=== PATIENT | male | born 1940 | race Two or more races ===

== ENCOUNTER → 2017-04-16 | Emergency (ER) | payer OTHER ==
[~2017-04-16] VITALS: Ht 177.8 cm; Wt 74.4 kg
[~2017-04-16] MED LIST: ARTIFICIAL TEAR15 M8 OP; ASA81 MG; AVAPRO75 MG; CATAFLAM50 MG PO; CRESTOR5 MG; MEDROL DOSE PACK; NEURONTIN300 MG PO; SKELAXIN800 MG PO
== END | disposition home or self-care (01) ==
LOC: ER 07:43
DX: R07.89 Other chest pain (principal)

== ENCOUNTER 2017-04-18 08:51 | Outpatient (CLI) | payer OTHER | END 2017-04-18 09:30 | disposition home or self-care (01) | LOC: NUCLEAR 08:51 | DX: I20.0 Unstable angina (principal) | CPT/HCPCS: 78452; 93017; A9500 ==

== ENCOUNTER 2018-02-16 09:38 | Outpatient (CLI) | payer OTHER | END 2018-02-16 09:54 | disposition home or self-care (01) | LOC: SONOGRAMA 09:38 | DX: K76.0 Fatty (change of) liver, not elsewhere classified (principal) ==

== ENCOUNTER 2018-03-04 11:39 | Outpatient (CLI) | payer OTHER | END 2018-03-04 15:36 | disposition home or self-care (01) | LOC: RAD 11:39 | DX: J44.9 Chronic obstructive pulmonary disease, unspecified (principal) ==

== ENCOUNTER 2018-10-04 14:16 | Outpatient (CLI) | payer OTHER | END 2018-10-04 14:17 | disposition home or self-care (01) | LOC: NUCLEAR 14:16 | DX: M81.0 Age-related osteoporosis without current pathological fracture (principal) ==

== ENCOUNTER → 2018-11-29 10:34 | Outpatient (CLI) | payer OTHER | END | disposition home or self-care (01) | LOC: LAB 10:34 | DX: D53.8 Other specified nutritional anemias (principal); D53.1 Other megaloblastic anemias, not elsewhere classified; E72.12 Methylenetetrahydrofolate reductase deficiency ==

== ENCOUNTER 2019-01-20 09:13 | Outpatient (CLI) | payer OTHER | END 2019-01-20 09:21 | disposition home or self-care (01) | LOC: LAB 09:13 | DX: R35.0 Frequency of micturition (principal); F52.21 Male erectile disorder; C61 Malignant neoplasm of prostate; D64.89 Other specified anemias; R10.84 Generalized abdominal pain; E03.8 Other specified hypothyroidism; E78.49 Other hyperlipidemia; R73.09 Other abnormal glucose; I10 Essential (primary) hypertension; Z13.6 Encounter for screening for cardiovascular disorders ==

== ENCOUNTER → 2019-10-20 09:31 | Outpatient (CLI) | payer OTHER | END | disposition home or self-care (01) | LOC: LAB 09:31 | PROVIDERS: ATTEND Internal Medicine Sports Medicine | DX: D64.89 Other specified anemias (principal); E11.9 Type 2 diabetes mellitus without complications; I10 Essential (primary) hypertension; E03.8 Other specified hypothyroidism; C61 Malignant neoplasm of prostate ==

== ENCOUNTER 2019-11-26 07:51 | Outpatient (CLI) | payer OTHER | END 2019-11-26 07:54 | disposition home or self-care (01) | LOC: RAD 07:51 | PROVIDERS: ATTEND Internal Medicine Sports Medicine | DX: R10.13 Epigastric pain (principal) ==

== ENCOUNTER 2019-12-17 07:22 | Outpatient (CLI) | payer OTHER | END 2019-12-17 07:36 | disposition home or self-care (01) | LOC: NUCLEAR 07:22 | PROVIDERS: ATTEND Internal Medicine Cardiovascular Disease | DX: R06.00 Dyspnea, unspecified (principal); I11.9 Hypertensive heart disease without heart failure | CPT/HCPCS: 78452; 93017; A9500 ==

== ENCOUNTER 2020-04-16 09:28 | Outpatient (CLI) | payer OTHER | END 2020-04-16 09:34 | disposition home or self-care (01) | LOC: LAB 09:28 | PROVIDERS: ATTEND Urology | DX: F52.21 Male erectile disorder (principal); R35.0 Frequency of micturition; C61 Malignant neoplasm of prostate; N30.00 Acute cystitis without hematuria; R97.20 Elevated prostate specific antigen [PSA] ==

== ENCOUNTER 2020-04-21 09:18 | Outpatient (CLI) | payer OTHER | END 2020-04-21 09:23 | disposition home or self-care (01) | LOC: LAB 09:18 | PROVIDERS: ATTEND Internal Medicine Sports Medicine | DX: D64.89 Other specified anemias (principal); E11.9 Type 2 diabetes mellitus without complications; E78.2 Mixed hyperlipidemia; I10 Essential (primary) hypertension; E03.8 Other specified hypothyroidism ==

== ENCOUNTER → 2020-06-29 11:22 | Outpatient (CLI) | payer OTHER | END | disposition home or self-care (01) | LOC: LAB 11:22 | PROVIDERS: ATTEND Internal Medicine Cardiovascular Disease | DX: E78.2 Mixed hyperlipidemia (principal); D64.89 Other specified anemias; N39.8 Other specified disorders of urinary system; R10.84 Generalized abdominal pain; E03.8 Other specified hypothyroidism; E78.89 Other lipoprotein metabolism disorders; E55.9 Vitamin D deficiency, unspecified; E11.9 Type 2 diabetes mellitus without complications; R73.09 Other abnormal glucose; N40.3 Nodular prostate with lower urinary tract symptoms; I10 Essential (primary) hypertension; Z13.6 Encounter for screening for cardiovascular disorders ==

== ENCOUNTER → 2020-09-28 09:03 | Outpatient (CLI) | payer OTHER | END | disposition home or self-care (01) | LOC: LAB 09:03 | PROVIDERS: ATTEND Internal Medicine Sports Medicine | DX: D64.89 Other specified anemias (principal); E11.9 Type 2 diabetes mellitus without complications; E78.49 Other hyperlipidemia; K76.89 Other specified diseases of liver; E03.8 Other specified hypothyroidism; E55.9 Vitamin D deficiency, unspecified; R29.898 Other symptoms and signs involving the musculoskeletal system ==

== ENCOUNTER → 2020-12-31 09:55 | Outpatient (CLI) | payer OTHER | END | disposition home or self-care (01) | LOC: LAB 09:55 | PROVIDERS: ATTEND Internal Medicine Cardiovascular Disease | DX: D64.89 Other specified anemias (principal); N39.0 Urinary tract infection, site not specified; R10.84 Generalized abdominal pain; E03.8 Other specified hypothyroidism; E78.49 Other hyperlipidemia; E55.9 Vitamin D deficiency, unspecified; R73.09 Other abnormal glucose; R06.09 Other forms of dyspnea; I10 Essential (primary) hypertension ==

== ENCOUNTER 2021-01-10 10:22 | Outpatient (CLI) | payer OTHER | END 2021-01-10 10:31 | disposition home or self-care (01) | LOC: RX STUDY 10:22 | PROVIDERS: ATTEND Specialist | DX: K22.89 Other specified disease of esophagus (principal); K21.9 Gastro-esophageal reflux disease without esophagitis ==

== ENCOUNTER 2021-02-14 15:39 | Outpatient (CLI) | payer OTHER ==
[2021-02-16] MEDS ORDERED: MELOXICAM15 MG PO (15:14)
== END 2021-02-14 15:48 | disposition home or self-care (01) ==
LOC: RAD 15:39
PROVIDERS: ATTEND Chiropractor
DX: M25.562 Pain in left knee (principal)

== ENCOUNTER 2021-02-15 11:42 | Outpatient (CLI) | payer OTHER ==
[2021-02-16] MEDS ORDERED: MELOXICAM15 MG PO (15:14)
== END 2021-02-15 11:50 | disposition home or self-care (01) ==
LOC: MRI 11:42
PROVIDERS: ATTEND Chiropractor
DX: M25.562 Pain in left knee (principal)
CPT/HCPCS: 73721

== ENCOUNTER 2021-04-14 09:36 | Outpatient (CLI) | payer OTHER ==
[~2021-04-14 09:36] MED LIST changes: +MELOXICAM15 MG PO
== END 2021-04-14 09:42 | disposition home or self-care (01) ==
LOC: LAB 09:36
PROVIDERS: ATTEND Internal Medicine Sports Medicine
DX: R97.0 Elevated carcinoembryonic antigen [CEA] (principal)

== ENCOUNTER 2021-06-06 09:17 | Outpatient (CLI) | payer OTHER | END 2021-06-06 09:18 | disposition home or self-care (01) | LOC: LAB 09:17 | PROVIDERS: ATTEND Internal Medicine Cardiovascular Disease | DX: D64.9 Anemia, unspecified (principal); R10.9 Unspecified abdominal pain; E78.5 Hyperlipidemia, unspecified; E55.9 Vitamin D deficiency, unspecified; N40.0 Benign prostatic hyperplasia without lower urinary tract symptoms; Z12.5 Encounter for screening for malignant neoplasm of prostate; I10 Essential (primary) hypertension; Z13.6 Encounter for screening for cardiovascular disorders ==

== ENCOUNTER 2021-07-28 10:32 | Outpatient (CLI) | payer OTHER | END 2021-07-28 10:35 | disposition home or self-care (01) | LOC: LAB 10:32 | PROVIDERS: ATTEND Internal Medicine Sports Medicine | DX: R05.9 Cough, unspecified (principal); R06.02 Shortness of breath; R50.9 Fever, unspecified; J20.8 Acute bronchitis due to other specified organisms; J20.2 Acute bronchitis due to streptococcus; J98.8 Other specified respiratory disorders; J12.89 Other viral pneumonia; Z20.822 Contact with and (suspected) exposure to COVID-19; Z20.828 Contact with and (suspected) exposure to other viral communicable diseases ==

== ENCOUNTER 2021-08-23 10:04 | Outpatient (CLI) | payer OTHER ==
[2021-08-24] MEDS ORDERED: DICLOFENAC SODI75 MG PO (12:32)
[2021-08-24] MEDS ORDERED: SKELAXIN800 MG PO (12:32)
== END 2021-08-23 10:12 | disposition home or self-care (01) ==
LOC: RAD 10:04
PROVIDERS: ATTEND Chiropractor
DX: M99.03 Segmental and somatic dysfunction of lumbar region (principal)

== ENCOUNTER → 2021-10-05 09:51 | Outpatient (CLI) | payer OTHER ==
[~2021-10-05 09:51] MED LIST changes: +CELEBREX200MG PO; +DICLOFENAC SODI75 MG PO
== END | disposition home or self-care (01) ==
LOC: LAB 09:51
PROVIDERS: ATTEND Internal Medicine Sports Medicine
DX: D64.9 Anemia, unspecified (principal); E11.9 Type 2 diabetes mellitus without complications; E78.2 Mixed hyperlipidemia; I10 Essential (primary) hypertension; E03.8 Other specified hypothyroidism

== ENCOUNTER 2021-10-06 10:57 | Outpatient (CLI) | payer OTHER | END 2021-10-06 10:58 | disposition home or self-care (01) | LOC: MRI 10:57 | PROVIDERS: ATTEND Physical Medicine & Rehabilitation | DX: M54.51 Vertebrogenic low back pain (principal); M51.37 Other intervertebral disc degeneration, lumbosacral region | CPT/HCPCS: 72158; Q9965; 72148 ==

== ENCOUNTER 2021-11-10 09:49 | Outpatient (CLI) | payer OTHER | END 2021-11-10 09:50 | disposition home or self-care (01) | LOC: LAB 09:49 | PROVIDERS: ATTEND Internal Medicine Cardiovascular Disease | DX: D64.9 Anemia, unspecified (principal); R10.9 Unspecified abdominal pain; E03.9 Hypothyroidism, unspecified; E78.5 Hyperlipidemia, unspecified; E88.9 Metabolic disorder, unspecified ==

== ENCOUNTER → 2021-11-21 | Outpatient (CLI) | payer OTHER | END | disposition home or self-care (01) | LOC: TOM 10:30 | DX: J84.9 Interstitial pulmonary disease, unspecified (principal) ==

== ENCOUNTER 2022-01-03 09:05 | Outpatient (CLI) | payer OTHER | END 2022-01-03 09:17 | disposition home or self-care (01) | LOC: LAB 09:05 | PROVIDERS: ATTEND Urology | DX: C61 Malignant neoplasm of prostate (principal); N30.10 Interstitial cystitis (chronic) without hematuria ==

== ENCOUNTER 2022-02-02 13:35 | Outpatient (CLI) | payer OTHER ==
[~2022-02-02 13:35] MED LIST changes: +ORPHENADRINE C100 MG PO
== END 2022-02-02 13:37 | disposition home or self-care (01) ==
LOC: NUCLEAR 13:35
PROVIDERS: ATTEND Physical Medicine & Rehabilitation
DX: M81.0 Age-related osteoporosis without current pathological fracture (principal)

== ENCOUNTER 2022-02-21 14:11 | Outpatient (CLI) | payer OTHER | END 2022-02-21 14:18 | disposition home or self-care (01) | LOC: RAD 14:11 | PROVIDERS: ATTEND Physical Medicine & Rehabilitation | DX: M25.511 Pain in right shoulder (principal); M25.512 Pain in left shoulder ==

== ENCOUNTER 2022-02-24 08:32 | Outpatient (CLI) | payer OTHER | END 2022-02-24 08:41 | disposition home or self-care (01) | LOC: SONOGRAMA 08:32 | PROVIDERS: ATTEND Physical Medicine & Rehabilitation | DX: M25.511 Pain in right shoulder (principal); M25.512 Pain in left shoulder ==

== ENCOUNTER 2022-04-05 09:14 | Outpatient (CLI) | payer OTHER | END 2022-04-05 09:16 | disposition home or self-care (01) | LOC: LAB 09:14 | DX: D64.9 Anemia, unspecified (principal); R10.9 Unspecified abdominal pain; E78.5 Hyperlipidemia, unspecified; E11.9 Type 2 diabetes mellitus without complications; E55.9 Vitamin D deficiency, unspecified; R97.20 Elevated prostate specific antigen [PSA] ==

== ENCOUNTER 2022-10-02 09:49 | Outpatient (CLI) | payer OTHER | END 2022-10-02 09:51 | disposition home or self-care (01) | LOC: LAB 09:49 | PROVIDERS: ATTEND Internal Medicine Sports Medicine | DX: D64.9 Anemia, unspecified (principal); E11.9 Type 2 diabetes mellitus without complications; E78.2 Mixed hyperlipidemia; I10 Essential (primary) hypertension; E03.8 Other specified hypothyroidism; R10.9 Unspecified abdominal pain; E78.5 Hyperlipidemia, unspecified; R97.20 Elevated prostate specific antigen [PSA]; R31.1 Benign essential microscopic hematuria; C61 Malignant neoplasm of prostate ==

== ENCOUNTER 2023-01-09 10:02 | Outpatient (CLI) | payer OTHER ==
[2023-01-09 10:36] LABS: HEMATOCRIT 37.5 % (39.0-48.0); HEMOGLOBIN 12.7 g/dL (13-16.00); MEAN CELL VOLUME 96.9 fL (80.0-100.00); MEAN CORPUSCULAR HEMOGLOBIN 32.9 pg (27.00-32.0); PLATELET COUNT 244 K/uL (150-450); RED BLOOD COUNT 3.87 M/uL (4.00-6.00); RED CELL DISTRIBUTION WIDTH 13.2 % (11.5-14.5)
[2023-01-09 10:46] LABS: INR 0.96; PARTIAL THROMBOPLASTIN TIME 27.1 SECONDS (22.0-34.0); PROTHROMBIN TIME 10.1 SECONDS (9.0-11.5)
[2023-01-09 11:14] LABS: ALBUMIN 3.8 gm/dL (3.4-5.0); BILIRUBIN TOTAL 0.43 mg/dL (0.3-1.2); CALCIUM 8.9 mg/dL (8.5-10.1); CHOL HDL RATIO 2.3 (0-5.0); CREATININE SERUM 0.88 mg/dL (0.70-1.30); GFR 82.7; GLOBULINA 2.9 G/DL (2.4-3.5); POTASSIUM 4.42 mEq/L (3.5-5.1); TOTAL PROTEIN 6.7 gm/dL (6.4-8.2)
== END 2023-01-09 13:19 | disposition home or self-care (01) ==
LOC: LAB 10:02
PROVIDERS: ATTEND Internal Medicine Cardiovascular Disease
DX: R10.9 Unspecified abdominal pain (principal); E78.5 Hyperlipidemia, unspecified; Z79.01 Long term (current) use of anticoagulants

== ENCOUNTER 2023-01-10 09:24 | Outpatient (CLI) | payer OTHER ==
[2023-01-10 11:14] LABS: FERRITIN 78.9 NG/ML (26-388); POTASSIUM 4.44 mEq/L (3.5-5.1)
[2023-01-10 11:15] LABS: ERYTHROCYTE SEDIMENTATION RATE 13 mm/hr
[2023-01-10 11:28] LABS: CORTISOL 13.29 ug/dl
[2023-01-10 14:40] LABS: PLATELET ESTIMATE NORMAL (NORMAL)
== END 2023-01-10 13:04 | disposition home or self-care (01) ==
LOC: LAB 09:24
PROVIDERS: ATTEND Internal Medicine Hematology & Oncology
DX: D51.3 Other dietary vitamin B12 deficiency anemia (principal); D52.0 Dietary folate deficiency anemia; E27.40 Unspecified adrenocortical insufficiency

== ENCOUNTER 2023-04-10 07:42 | Outpatient (CLI) | payer OTHER ==
[~2023-04-10 07:42] MED LIST changes: +DICLOFENAC SOD100 GM TOP
[2023-04-10 08:27] LABS: PH,URINE 5.5 (5.0-8.0); URINE APPEARANCE Clear; URINE BILIRRUBIN Negative (NEGATIVE); URINE BLOOD Negative; URINE COLOR Yellow; URINE GLUCOSE Negative (NEGATIVE); URINE LEUKOCYTE Negative; URINE NITRATE Negative; URINE PROTEIN Negative (NEGATIVE); URINE UROBILINOGEN 0.2 E.U./dl
[2023-04-10 08:31] LABS: URINE BACTERIA 13.8 uL (0.0-1933); URINE EPITHELIAL CELLS 4.1 uL (0.0-38.8); URINE RBC 14.8 uL (0.0-20.8); URINE WBC 3.7 uL (0.0-23.2)
[2023-04-10 08:42] LABS: HEMATOCRIT 36.9 % (39.0-48.0); HEMOGLOBIN 12.7 g/dL (13-16.00); MEAN CELL VOLUME 97.4 fL (80.0-100.00); MEAN CORPUSCULAR HEMOGLOBIN 33.5 pg (27.00-32.0); MEAN CORPUSCULAR HGB CONC 34.4 g/dl (32.0-36.0); PLATELET COUNT 268 K/uL (150-450); RED BLOOD COUNT 3.79 M/uL (4.00-6.00); RED CELL DISTRIBUTION WIDTH 14.1 % (11.5-14.5)
[2023-04-10 09:30] LABS: ALBUMIN 3.8 gm/dL (3.4-5.0); BILIRUBIN TOTAL 0.52 mg/dL (0.3-1.2); CALCIUM 9.1 mg/dL (8.5-10.1); CHOL HDL RATIO 2.3 (0-5.0); CREATININE SERUM 0.78 mg/dL (0.70-1.30); GFR 95.06; GLOBULINA 2.7 G/DL (2.4-3.5); POTASSIUM 4.29 mEq/L (3.5-5.1); T4 FREE 1.09 NG/ML (0.76-1.46); TOTAL PROTEIN 6.5 gm/dL (6.4-8.2); TSH 1.92 uIU/mL (0.358-3.74)
== END 2023-04-10 07:43 | disposition home or self-care (01) ==
LOC: LAB 07:42
PROVIDERS: ATTEND Internal Medicine Sports Medicine
DX: D64.9 Anemia, unspecified (principal); E11.9 Type 2 diabetes mellitus without complications; E78.2 Mixed hyperlipidemia; I10 Essential (primary) hypertension; E03.8 Other specified hypothyroidism

== ENCOUNTER 2023-06-12 09:24 | Outpatient (CLI) | payer OTHER ==
[2023-06-12 10:31] LABS: HEMATOCRIT 37.3 % (39.0-48.0); HEMOGLOBIN 12.9 g/dL (13-16.00); MEAN CELL VOLUME 98.1 fL (80.0-100.00); MEAN CORPUSCULAR HEMOGLOBIN 33.8 pg (27.00-32.0); MEAN CORPUSCULAR HGB CONC 34.5 g/dl (32.0-36.0); PLATELET COUNT 261 K/uL (150-450); RED CELL DISTRIBUTION WIDTH 13.2 % (11.5-14.5)
[2023-06-12 11:10] LABS: ALBUMIN 3.8 gm/dL (3.4-5.0); BILIRUBIN TOTAL 0.45 mg/dL (0.3-1.2); CALCIUM 9.4 mg/dL (8.5-10.1); CHOL HDL RATIO 2.2 (0-5.0); CREATININE SERUM 0.84 mg/dL (0.70-1.30); GFR 87.27; POTASSIUM 4.51 mEq/L (3.5-5.1); TOTAL PROTEIN 6.8 gm/dL (6.4-8.2)
== END 2023-06-12 09:26 | disposition home or self-care (01) ==
LOC: LAB 09:24
PROVIDERS: ATTEND Internal Medicine Cardiovascular Disease
DX: D64.9 Anemia, unspecified (principal); R10.9 Unspecified abdominal pain; E78.5 Hyperlipidemia, unspecified; E11.9 Type 2 diabetes mellitus without complications

== ENCOUNTER → 2023-10-18 09:07 | Outpatient (CLI) | payer OTHER ==
[2023-10-18 09:57] LABS: PH,URINE 5.5 (5.0-8.0); URINE APPEARANCE Clear; URINE BILIRRUBIN Negative (NEGATIVE); URINE BLOOD Negative; URINE COLOR Yellow; URINE GLUCOSE Negative (NEGATIVE); URINE LEUKOCYTE Negative; URINE NITRATE Negative; URINE PROTEIN Negative (NEGATIVE)
[2023-10-18 10:02] LABS: URINE BACTERIA 32.7 uL (0.0-1933); URINE EPITHELIAL CELLS 1.8 uL (0.0-38.8); URINE RBC 11.1 uL (0.0-20.8); URINE WBC 3.2 uL (0.0-23.2)
[2023-10-18 10:21] LABS: HEMATOCRIT 36.2 % (39.0-48.0); HEMOGLOBIN 12.4 g/dL (13-16.00); MEAN CELL VOLUME 99.5 fL (80.0-100.00); MEAN CORPUSCULAR HEMOGLOBIN 34.1 pg (27.00-32.0); MEAN CORPUSCULAR HGB CONC 34.2 g/dl (32.0-36.0); PLATELET COUNT 268 K/uL (150-450); RED BLOOD COUNT 3.64 M/uL (4.00-6.00); RED CELL DISTRIBUTION WIDTH 13.3 % (11.5-14.5)
[2023-10-18 11:06] LABS: ALBUMIN 3.9 gm/dL (3.4-5.0); BILIRUBIN TOTAL 0.45 mg/dL (0.3-1.2); CALCIUM 9.1 mg/dL (8.5-10.1); CHOL HDL RATIO 2.1 (0-5.0); CREATININE SERUM 0.86 mg/dL (0.70-1.30); GFR 84.93; POTASSIUM 4.65 mEq/L (3.5-5.1); T4 FREE 1.02 NG/ML (0.76-1.46); TOTAL PROTEIN 6.9 gm/dL (6.4-8.2); TSH 1.72 uIU/mL (0.358-3.74)
== END | disposition home or self-care (01) ==
LOC: LAB 09:07
PROVIDERS: ATTEND Internal Medicine Cardiovascular Disease
DX: D64.9 Anemia, unspecified (principal); N39.0 Urinary tract infection, site not specified; R10.9 Unspecified abdominal pain; E78.5 Hyperlipidemia, unspecified; E11.9 Type 2 diabetes mellitus without complications; E78.2 Mixed hyperlipidemia; I10 Essential (primary) hypertension; E03.8 Other specified hypothyroidism

== ENCOUNTER 2024-02-04 09:09 | Outpatient (CLI) | payer OTHER ==
[2024-02-04 09:53] LABS: URINE APPEARANCE Clear; URINE BILIRRUBIN Negative (NEGATIVE); URINE BLOOD Negative; URINE COLOR Yellow; URINE GLUCOSE Negative (NEGATIVE); URINE KETONE Negative (NEGATIVE); URINE LEUKOCYTE Negative; URINE NITRATE Negative; URINE PROTEIN Negative (NEGATIVE); URINE UROBILINOGEN 0.2 E.U./dl
[2024-02-04 09:58] LABS: URINE CAST 0.15 uL (0.0-1.40); URINE EPITHELIAL CELLS 0.3 uL (0.0-38.8); URINE RBC 6.7 uL (0.0-20.8); URINE WBC 1.6 uL (0.0-23.2)
== END 2024-02-04 23:00 | disposition home or self-care (01) ==
LOC: LAB 09:09
PROVIDERS: ATTEND Urology
DX: R35.0 Frequency of micturition (principal); F52.21 Male erectile disorder; C61 Malignant neoplasm of prostate; R31.1 Benign essential microscopic hematuria

== ENCOUNTER 2024-02-04 10:12 | Outpatient (CLI) | payer OTHER | END 2024-02-04 10:23 | disposition home or self-care (01) | LOC: SONOGRAMA 10:12 | PROVIDERS: ATTEND Urology | DX: R35.0 Frequency of micturition (principal); F52.21 Male erectile disorder; C61 Malignant neoplasm of prostate; R31.1 Benign essential microscopic hematuria ==

== ENCOUNTER 2024-04-08 09:02 | Outpatient (CLI) | payer OTHER ==
[2024-04-08 10:28] LABS: HEMATOCRIT 35.3 % (39.0-48.0); HEMOGLOBIN 12.1 g/dL (13-16.00); MEAN CORPUSCULAR HEMOGLOBIN 33.6 pg (27.00-32.0); MEAN CORPUSCULAR HGB CONC 34.3 g/dl (32.0-36.0); PLATELET COUNT 253 K/uL (150-450); RED BLOOD COUNT 3.61 M/uL (4.00-6.00); RED CELL DISTRIBUTION WIDTH 13.5 % (11.5-14.5)
[2024-04-08 10:46] LABS: PH,URINE 5.5 (5.0-8.0); URINE APPEARANCE Clear; URINE BILIRRUBIN Negative (NEGATIVE); URINE BLOOD Negative; URINE COLOR Yellow; URINE GLUCOSE Negative (NEGATIVE); URINE KETONE Negative (NEGATIVE); URINE LEUKOCYTE Negative; URINE NITRATE Negative; URINE PROTEIN Negative (NEGATIVE); URINE UROBILINOGEN 0.2 E.U./dl
[2024-04-08 10:50] LABS: URINE BACTERIA 9.7 uL (0.0-1933); URINE EPITHELIAL CELLS 2.3 uL (0.0-38.8); URINE RBC 5.1 uL (0.0-20.8)
[2024-04-08 10:52] LABS: URINE CAST 0.44 uL (0.0-1.40); URINE WBC 1.5 uL (0.0-23.2)
[2024-04-08 11:29] LABS: ALBUMIN 3.6 gm/dL (3.4-5.0); BILIRUBIN TOTAL 0.36 mg/dL (0.3-1.2); CALCIUM 9.2 mg/dL (8.5-10.1); CHOL HDL RATIO 2.2 (0-5.0); CREATININE SERUM 0.88 mg/dL (0.70-1.30); GFR 82.5; GLOBULINA 2.9 G/DL (2.4-3.5); POTASSIUM 4.74 mEq/L (3.5-5.1); PROSTATIC SPECIFIC ANTIGEN 0.063 NG/ML (0.010-4.00); T4 FREE 0.94 NG/ML (0.76-1.46); TOTAL PROTEIN 6.5 gm/dL (6.4-8.2); TSH 1.82 uIU/mL (0.358-3.74)
== END 2024-04-08 09:12 | disposition home or self-care (01) ==
LOC: LAB 09:02
PROVIDERS: ATTEND Internal Medicine Sports Medicine
DX: D64.9 Anemia, unspecified (principal); E11.9 Type 2 diabetes mellitus without complications; E78.2 Mixed hyperlipidemia; I10 Essential (primary) hypertension; E03.8 Other specified hypothyroidism; C63.9 Malignant neoplasm of male genital organ, unspecified; R97.20 Elevated prostate specific antigen [PSA]

== ENCOUNTER 2024-04-28 12:04 | Emergency (ER) | payer OTHER ==
[~2024-04-28] VITALS: Ht 177.8 cm; Wt 72.6 kg
== END 2024-04-28 14:24 | disposition home or self-care (01) ==
LOC: ER 12:06
DX: Z48.02 Encounter for removal of sutures (principal); Z87.828 Personal history of other (healed) physical injury and trauma

== ENCOUNTER 2024-04-30 14:43 | Outpatient (CLI) | payer OTHER | END 2024-04-30 14:50 | disposition home or self-care (01) | LOC: MRI 14:43 | DX: S80.01XA Contusion of right knee, initial encounter (principal); X58.XXXA Exposure to other specified factors, initial encounter; Y93.9 Activity, unspecified; Y92.9 Unspecified place or not applicable; Y99.9 Unspecified external cause status | CPT/HCPCS: 73720; Q9965; 73721 ==

== ENCOUNTER 2024-06-09 08:04 | Outpatient (CLI) | payer OTHER ==
[2024-06-09 08:52] LABS: HEMATOCRIT 37.1 % (39.0-48.0); HEMOGLOBIN 12.7 g/dL (13-16.00); MEAN CELL VOLUME 97.5 fL (80.0-100.00); MEAN CORPUSCULAR HEMOGLOBIN 33.3 pg (27.00-32.0); MEAN CORPUSCULAR HGB CONC 34.2 g/dl (32.0-36.0); PLATELET COUNT 271 K/uL (150-450); RED BLOOD COUNT 3.81 M/uL (4.00-6.00); RED CELL DISTRIBUTION WIDTH 13.8 % (11.5-14.5)
[2024-06-09 09:45] LABS: ALBUMIN 3.7 gm/dL (3.4-5.0); BILIRUBIN TOTAL 0.62 mg/dL (0.3-1.2); CHOL HDL RATIO 2.5 (0-5.0); CREATININE SERUM 0.9 mg/dL (0.70-1.30); GFR 80.39; GLOBULINA 3.1 G/DL (2.4-3.5); POTASSIUM 4.25 mEq/L (3.5-5.1); TOTAL PROTEIN 6.8 gm/dL (6.4-8.2)
== END 2024-06-09 08:15 | disposition home or self-care (01) ==
LOC: LAB 08:04
PROVIDERS: ATTEND Internal Medicine Cardiovascular Disease
DX: D64.9 Anemia, unspecified (principal); R10.9 Unspecified abdominal pain; E78.5 Hyperlipidemia, unspecified; E11.9 Type 2 diabetes mellitus without complications

== ENCOUNTER 2024-08-20 09:55 | Outpatient (CLI) | payer OTHER ==
[~2024-08-20 09:55] MED LIST changes: +NAPROXEN500 MG PO
== END 2024-08-20 10:00 | disposition home or self-care (01) ==
LOC: MRI 09:55
PROVIDERS: ATTEND Physical Medicine & Rehabilitation
DX: M17.11 Unilateral primary osteoarthritis, right knee (principal)
CPT/HCPCS: 73721

== ENCOUNTER 2024-10-01 10:57 | Outpatient (CLI) | payer OTHER ==
[2024-10-01 11:49] LABS: BASO % 0.5 % (0.1-1.2); EOS # 0.05 (0.04-0.54); EOS % 0.8 % (0.7-7.0); LYMPH # 1.20 (1.18-3.74); LYMPH % 20.1 % (19.3-53.1); MEAN PLATELET VOLUME 9.80 fl (9.4-12.4); MONO # 0.62 (0.24-0.82); MONO % 10.4 % (4.7-12.5); NEUT # 4.04 (1.56-6.13); NEUT % 67.9 % (34.0-71.1); RED CELL DISTRIBUTION WIDTH 13.1 % (11.6-14.4)
[2024-10-01 11:50] LABS: URINE APPEARANCE Clear; URINE BILIRRUBIN Negative (NEGATIVE); URINE BLOOD Negative; URINE COLOR Yellow; URINE GLUCOSE Negative (NEGATIVE); URINE KETONE Trace (NEGATIVE); URINE LEUKOCYTE Negative; URINE NITRATE Negative; URINE PROTEIN Trace (NEGATIVE); URINE UROBILINOGEN 0.2 E.U./dl
[2024-10-01 11:52] LABS: URINE BACTERIA 9.5 uL (0.0-1933); URINE CAST 2.05 uL (0.0-1.40); URINE EPITHELIAL CELLS 5.8 uL (0.0-38.8); URINE RBC 7.9 uL (0.0-20.8); URINE WBC 3.0 uL (0.0-23.2)
[2024-10-01 12:31] LABS: ALT/SGPT 30.0 U/L (12-78); AST/SGOT 27.0 U/L (15-37); BILIRUBIN TOTAL 0.48 mg/dL (0.3-1.2); BUN CREA RATIO 31.0 (7.0-25.0); CHOL HDL RATIO 2.7 (0-5.0); CREATININE SERUM 0.9 mg/dL (0.70-1.30); GFR 80.39; GLOBULINA 3.3 G/DL (2.4-3.5); GLUCOSE FASTING 95.0 mg/dL (65-100); HDL 76.0 mg/dl (40-60); LDL 110.0 mg/dl (0-130); OSMOLALITY SERUM 290.0 MOSM/KG (275-295); T4 FREE 0.99 NG/ML (0.76-1.46); TSH 1.56 uIU/mL (0.358-3.74); VLDL 17.0 (0-39)
[2024-10-01] MEDS ORDERED: ZANAFLEX4 MG PO (14:07)
== END 2024-10-01 11:07 | disposition home or self-care (01) ==
LOC: LAB 10:57
PROVIDERS: ATTEND Internal Medicine Sports Medicine
DX: E55.9 Vitamin D deficiency, unspecified (principal); D64.9 Anemia, unspecified; E11.9 Type 2 diabetes mellitus without complications; E78.2 Mixed hyperlipidemia; I10 Essential (primary) hypertension; E03.8 Other specified hypothyroidism

== ENCOUNTER 2024-10-30 08:30 | Inpatient (IN) | payer OTHER ==
[~2024-10-30] VITALS: Ht 179.3 cm; Wt 70.3 kg
[~2024-10-30 08:30] MED LIST changes: +DICLOFENAC POTA50 MG PO; +KETOROLAC60 MG/2 M1 IM; +NORFLEX100MG PO; +ORPHENADRI30 MG/1 M1 IM; +ZANAFLEX4 MG PO
[2024-10-30] MEDS ORDERED: ZESTRIL5 MG PO (10:00)
[2024-10-30] MEDS ORDERED: ROSUVASTATIN CAL5 MG PO (10:00)
[2024-10-30] MEDS ORDERED: CYMBALTA60 MG PO (10:01)
[2024-10-30] MEDS ORDERED: CARDURA8 MG PO (10:02)
[2024-10-30 10:05] LABS: BASO % 0.4 % (0.1-1.2); EOS # 0.07 (0.04-0.54); EOS % 1.2 % (0.7-7.0); LYMPH # 0.99 (1.18-3.74); LYMPH % 17.6 % (19.3-53.1); MEAN PLATELET VOLUME 10.50 fl (9.4-12.4); MONO # 0.80 (0.24-0.82); NEUT # 3.73 (1.56-6.13); NEUT % 66.2 % (34.0-71.1); RED CELL DISTRIBUTION WIDTH 13.8 % (11.6-14.4)
[2024-10-30] MEDS ORDERED: DARIFENACIN ER15 MG PO (10:05)
[2024-10-30 10:08] VITALS: BP 133/77
[2024-10-30 10:09] LABS: URINE APPEARANCE Clear; URINE BILIRRUBIN Negative (NEGATIVE); URINE BLOOD Negative; URINE COLOR Yellow; URINE GLUCOSE Negative (NEGATIVE); URINE KETONE Trace (NEGATIVE); URINE LEUKOCYTE Negative; URINE NITRATE Negative; URINE PROTEIN Negative (NEGATIVE); URINE UROBILINOGEN 0.2 E.U./dl
[2024-10-30 10:12] LABS: URINE BACTERIA 17.9 uL (0.0-1933); URINE CAST 6.15 uL (0.0-1.40); URINE EPITHELIAL CELLS 3.9 uL (0.0-38.8); URINE RBC 4.2 uL (0.0-20.8); URINE WBC 4.6 uL (0.0-23.2)
[2024-10-30 10:14] LABS: MONO % 14.2 % (4.7-12.5)
[2024-10-30 10:35] LABS: URINE MUCUS HEAVY
[2024-10-30 10:41] LABS: ALT/SGPT 39.0 U/L (12-78); AST/SGOT 31.0 U/L (15-37); BILIRUBIN TOTAL 0.35 mg/dL (0.3-1.2); BUN CREA RATIO 31.0 (7.0-25.0); CREATININE SERUM 1.18 mg/dL (0.70-1.30); GFR 58.81; GLOBULINA 2.8 G/DL (2.4-3.5); GLUCOSE FASTING 94.0 mg/dL (65-100); OSMOLALITY SERUM 290.0 MOSM/KG (275-295)
[2024-10-30 10:45] LABS: INR 0.96
[2024-11-04] MEDS ORDERED: TRANEXAMIC ACID 100MG/1ML (1000MG) AMPUL IV ONE (13:15)
[2024-11-04] MEDS ORDERED: KETOROLAC TROMETHAMINE 60 MG VIAL IM ONE (13:15)
[2024-11-04] MEDS ORDERED: CEFAZOLIN SODIUM 1,000 MG VIAL IV ONE (13:15)
[2024-11-04] MEDS ORDERED: BUPIVACAINE HCL 30 ML VIAL IJ ONE (13:15)
[2024-11-04] MEDS ORDERED: MORPHINE SULFATE 4 MG/ML VIAL IV ONE (13:45)
[2024-11-04] MEDS ORDERED: ENALAPRILAT DIHYDRATE 1.25 MG/ML VIAL IV PRN (14:30)
[2024-11-04] MEDS ORDERED: ONDANSETRON HCL 2 MG/ML VIAL IV PRN (15:00)
[2024-11-04] MEDS ORDERED: ROSUVASTATIN CALCIUM 10 MG TABLET PO SCH (17:00)
[2024-11-04] MEDS ORDERED: MORPHINE SULFATE 4 MG/ML CARTRIDGE IV SCH (18:00)
[2024-11-04] MEDS ORDERED: OxyCODONE HCL 5 MG TABLET (ROXICODONE) PO SCH (18:00)
[2024-11-04] MEDS ORDERED: CEFAZOLIN SODIUM 1,000 MG VIAL IV SCH (18:00)
[2024-11-04] MEDS ORDERED: GABAPENTIN 100 MG CAPSULE PO SCH (21:00)
[2024-11-04] MEDS ORDERED: ORPHENADRINE CITRATE 100 MG TABLET PO SCH (21:00)
[2024-11-05 01:18] VITALS: BP 137/75; O2SAT 96
[2024-11-05 07:13] LABS: BASO % 0.3 % (0.1-1.2); EOS # 0.06 (0.04-0.54); EOS % 0.8 % (0.7-7.0); LYMPH # 0.69 (1.18-3.74); LYMPH % 8.7 % (19.3-53.1); MEAN PLATELET VOLUME 10.80 fl (9.4-12.4); MONO # 1.13 (0.24-0.82); NEUT # 5.97 (1.56-6.13); NEUT % 75.5 % (34.0-71.1); RED CELL DISTRIBUTION WIDTH 13.8 % (11.6-14.4)
[2024-11-05 07:22] LABS: MONO % 14.3 % (4.7-12.5)
[2024-11-05 08:00] VITALS: BP 160/80; O2SAT 95
[2024-11-05] MEDS ORDERED: DOXAZOSIN MESYLATE 8 MG TABLET PO SCH (09:00)
[2024-11-05] MEDS ORDERED: LISINOPRIL 5 MG TABLET PO SCH (09:00)
[2024-11-05] MEDS ORDERED: RIVAROXABAN 10 MG TAB PO SCH (09:00)
[2024-11-05] MEDS ORDERED: Cyanocobalamin/Mecobalamin 1 TAB.SL SL NR (12:00)
[2024-11-05] MEDS ORDERED: SOD FERRIC GLUC COMPLX/SUCROSE 62.5 MG/5 ML AMPUL IV SCH (12:00)
[2024-11-05 16:00] VITALS: BP 92/53; O2SAT 98
[2024-11-05 17:27] LABS: COVID-19 AG NEGATIVE (NEGATIVE)
[2024-11-06 02:08] VITALS: BP 110/66; O2SAT 95
[2024-11-06 08:00] VITALS: BP 165/73; O2SAT 94
[2024-11-06] MEDS ORDERED: Cyanocobalamin/Mecobalamin 1 TAB.SL SL SCH (09:00)
[2024-11-06 16:00] VITALS: BP 120/66; O2SAT 95
[2024-11-06 19:30] VITALS: BP 125/65; O2SAT 92
[2024-11-07 02:36] VITALS: BP 142/77; O2SAT 95
[2024-11-07 08:00] VITALS: BP 109/70; O2SAT 37
[2024-11-07] MEDS ORDERED: LORazepam 2 MG/ML VIAL IV PRN (15:00)
[2024-11-07] MEDS ORDERED: LORazepam 2 MG/ML VIAL IV NR (15:00)
[2024-11-07] MEDS ORDERED: 0.9 % SODIUM CHLORIDE 1,000 ML IV SCH (15:15)
[2024-11-07] MEDS ORDERED: TEMAZEPAM 15 MG CAPSULE PO PRN (15:15)
[2024-11-07 16:00] VITALS: BP 167/72; O2SAT 93
[2024-11-07 17:38] LABS: BASO % 0.1 % (0.1-1.2); EOS # 0.00 (0.04-0.54); EOS % 0.0 % (0.7-7.0); LYMPH # 0.36 (1.18-3.74); LYMPH % 2.7 % (19.3-53.1); MEAN PLATELET VOLUME 10.40 fl (9.4-12.4); MONO # 1.42 (0.24-0.82); MONO % 10.5 % (4.7-12.5); NEUT # 11.62 (1.56-6.13); NEUT % 86.2 % (34.0-71.1); RED CELL DISTRIBUTION WIDTH 16.4 % (11.6-14.4)
[2024-11-07 18:00] LABS: ALT/SGPT 34.0 U/L (12-78); AST/SGOT 39.0 U/L (15-37); BILIRUBIN TOTAL 0.93 mg/dL (0.3-1.2); BUN CREA RATIO 12.0 (7.0-25.0); CREATININE SERUM 1.21 mg/dL (0.70-1.30); GFR 57.13; GLOBULINA 2.6 G/DL (2.4-3.5); GLUCOSE FASTING 138.0 mg/dL (65-100); OSMOLALITY SERUM 284.0 MOSM/KG (275-295)
[2024-11-07] MEDS ORDERED: QUETIAPINE FUMARATE 25 MG TABLET PO PRN (18:45)
[2024-11-07 20:33] LABS: ABG PH 7.525 (7.35-7.45)
[2024-11-07 20:34] LABS: ABG PO2 58.6 mmHg (80-100); BICARBONATE 25.4 mmol/l (23-25); o2 36 %
[2024-11-08 01:40] VITALS: BP 147/82; O2SAT 96
[2024-11-08 08:00] VITALS: BP 142/69; O2SAT 95
[2024-11-08 14:23] VITALS: O2SAT 96
[2024-11-08 16:00] VITALS: BP 134/76; O2SAT 96
[2024-11-08 17:09] VITALS: O2SAT 96
[2024-11-08] MEDS ORDERED: RIVAROXABAN 15 MG TABLET PO SCH (17:39)
[2024-11-08 20:34] LABS: ALT/SGPT 35.0 U/L (12-78); AST/SGOT 40.0 U/L (15-37); BILIRUBIN TOTAL 0.8 mg/dL (0.3-1.2); BUN CREA RATIO 10.0 (7.0-25.0); CREATININE SERUM 3.18 mg/dL (0.70-1.30); GFR 18.73; GLOBULINA 2.7 G/DL (2.4-3.5); GLUCOSE FASTING 114.0 mg/dL (65-100); OSMOLALITY SERUM 289.0 MOSM/KG (275-295); TSH 0.792 uIU/mL (0.358-3.74)
[2024-11-08] MEDS ORDERED: DARIFENACIN 15 MG PO SCH (21:00)
[2024-11-08] MEDS ORDERED: PATIENTS OWN MEDICATION (MEDICAMENTO EN PISO) PO SCH (21:00)
[2024-11-08 21:05] VITALS: O2SAT 93
[2024-11-08] MEDS ORDERED: TAMSULOSIN HCL 0.4 MG CAP PO SCH (21:14)
[2024-11-09] VITALS (7 sets, daily range): BP systolic 98–125; BP diastolic 58–67; O2SAT 92–98
[2024-11-09 09:04] LABS: BASO % 0.1 % (0.1-1.2); EOS # 0.21 (0.04-0.54); EOS % 2.3 % (0.7-7.0); LYMPH # 0.69 (1.18-3.74); LYMPH % 7.7 % (19.3-53.1); MEAN PLATELET VOLUME 10.30 fl (9.4-12.4); MONO # 1.06 (0.24-0.82); MONO % 11.8 % (4.7-12.5); NEUT # 6.96 (1.56-6.13); NEUT % 77.8 % (34.0-71.1); RED CELL DISTRIBUTION WIDTH 16.3 % (11.6-14.4)
[2024-11-09 09:47] LABS: ALT/SGPT 38.0 U/L (12-78); AST/SGOT 46.0 U/L (15-37); BILIRUBIN TOTAL 0.72 mg/dL (0.3-1.2); BUN CREA RATIO 17.0 (7.0-25.0); CREATININE SERUM 1.42 mg/dL (0.70-1.30); GFR 47.5; GLOBULINA 2.3 G/DL (2.4-3.5); GLUCOSE FASTING 111.0 mg/dL (65-100); OSMOLALITY SERUM 288.0 MOSM/KG (275-295)
[2024-11-09 13:15] LABS: ABG PH 7.439 (7.35-7.45); BICARBONATE 23.9 mmol/l (23-25)
[2024-11-09 13:22] LABS: ABG PO2 59.1 mmHg (80-100); o2 21 %
[2024-11-09] MEDS ORDERED: PATIENTS OWN MEDICATION (MEDICAMENTO EN PISO) PO SCH (21:00)
[2024-11-10] VITALS (9 sets, daily range): BP systolic 101–121; BP diastolic 56–67; O2SAT 89–96
[2024-11-10 08:14] LABS: BASO % 0.1 % (0.1-1.2); EOS # 0.27 (0.04-0.54); EOS % 3.4 % (0.7-7.0); LYMPH # 0.63 (1.18-3.74); LYMPH % 7.9 % (19.3-53.1); MEAN PLATELET VOLUME 10.20 fl (9.4-12.4); MONO # 0.91 (0.24-0.82); MONO % 11.4 % (4.7-12.5); NEUT # 6.09 (1.56-6.13); NEUT % 76.7 % (34.0-71.1); RED CELL DISTRIBUTION WIDTH 15.9 % (11.6-14.4)
[2024-11-10 09:59] LABS: GLUCOSE FASTING 91.0 mg/dL (65-100)
[2024-11-10 10:00] LABS: BILIRUBIN TOTAL 0.64 mg/dL (0.3-1.2); BUN CREA RATIO 24.0 (7.0-25.0); CREATININE SERUM 0.67 mg/dL (0.70-1.30); GFR 113.01; GLOBULINA 2.6 G/DL (2.4-3.5); OSMOLALITY SERUM 284.0 MOSM/KG (275-295)
[2024-11-10 10:01] LABS: ALT/SGPT 75.0 U/L (12-78); AST/SGOT 79.0 U/L (15-37); PROSTATIC SPECIFIC ANTIGEN 0.047 NG/ML (0.010-4.00)
[2024-11-10 11:52] LABS: ABG PH 7.422 (7.35-7.45); ABG PO2 78.9 mmHg (80-100); BICARBONATE 22.8 mmol/l (23-25)
[2024-11-10 11:53] LABS: o2 28 %
[2024-11-10] MEDS ORDERED: levoFLOXacin IN DEXTROSE 5 % 150 ML IV SCH (17:00)
[2024-11-10] MEDS ORDERED: SOD FERRIC GLUC COMPLX/SUCROSE 62.5 MG/5 ML AMPUL IV SCH (17:05)
[2024-11-11 02:11] VITALS: BP 127/83; O2SAT 97
[2024-11-11 08:00] VITALS: BP 125/64; O2SAT 96
[2024-11-11] MEDS ORDERED: RIVAROXABAN 10 MG TAB PO SCH (09:00)
[2024-11-11 16:00] VITALS: BP 127/63; O2SAT 94
[2024-11-11] MEDS ORDERED: ENALAPRILAT DIHYDRATE 2.5 MG/2 ML VIAL IV PRN (22:30)
[2024-11-12 01:06] VITALS: BP 153/82; O2SAT 94
[2024-11-12 09:00] VITALS: BP 144/83; O2SAT 96
[2024-11-12 10:29] LABS: BASO % 0.2 % (0.1-1.2); EOS # 0.02 (0.04-0.54); EOS % 0.2 % (0.7-7.0); LYMPH # 0.54 (1.18-3.74); LYMPH % 4.9 % (19.3-53.1); MEAN PLATELET VOLUME 9.50 fl (9.4-12.4); MONO # 1.48 (0.24-0.82); NEUT # 8.83 (1.56-6.13); NEUT % 80.7 % (34.0-71.1); RED CELL DISTRIBUTION WIDTH 15.3 % (11.6-14.4)
[2024-11-12 10:36] LABS: MONO % 13.5 % (4.7-12.5)
[2024-11-12 16:00] VITALS: BP 146/80; O2SAT 94
[2024-11-12 19:24] LABS: BUN CREA RATIO 15.0 (7.0-25.0); CREATININE SERUM 1.3 mg/dL (0.70-1.30); GFR 52.59; GLUCOSE FASTING 135.0 mg/dL (65-100); OSMOLALITY SERUM 287.0 MOSM/KG (275-295)
[2024-11-13 02:30] VITALS: BP 127/88; O2SAT 97
[2024-11-13 06:11] LABS: BASO % 0.2 % (0.1-1.2); EOS # 0.06 (0.04-0.54); EOS % 0.5 % (0.7-7.0); LYMPH # 0.57 (1.18-3.74); LYMPH % 5.1 % (19.3-53.1); MEAN PLATELET VOLUME 9.30 fl (9.4-12.4); MONO # 1.50 (0.24-0.82); NEUT # 8.86 (1.56-6.13); NEUT % 80.1 % (34.0-71.1); RED CELL DISTRIBUTION WIDTH 15.8 % (11.6-14.4)
[2024-11-13 06:27] LABS: MONO % 13.6 % (4.7-12.5)
[2024-11-13 06:59] LABS: BUN CREA RATIO 11.0 (7.0-25.0); CREATININE SERUM 2.14 mg/dL (0.70-1.30); GFR 29.59; GLUCOSE FASTING 112.0 mg/dL (65-100); OSMOLALITY SERUM 290.0 MOSM/KG (275-295)
[2024-11-13 08:00] VITALS: BP 160/66; O2SAT 98
[2024-11-13] MEDS ORDERED: XARELTO10 MG PO (13:22)
[2024-11-13 16:00] VITALS: BP 160/79; O2SAT 96
== END 2024-11-13 17:59 | DRG 470 ==
LOC: O/R 11-04 06:35 → SURH 11-04 06:35
PROVIDERS: Internal Medicine; Internal Medicine Geriatric Medicine; ADMIT Orthopaedic Surgery; ATTEND Orthopaedic Surgery
PROC: 0QUD0JZ Supplement Right Patella with Synthetic Substitute, Open Approach (ICD-10-PCS; 2024-11-04)
PROC: 0SRC0JZ Replacement of Right Knee Joint with Synthetic Substitute, Open Approach (ICD-10-PCS; principal; 2024-11-04 11:15)
PROC: 30233N1 Transfusion of Nonautologous Red Blood Cells into Peripheral Vein, Percutaneous Approach (ICD-10-PCS; 2024-11-06)
PROC: 4A033R1 Measurement of Arterial Saturation, Peripheral, Percutaneous Approach (ICD-10-PCS; 2024-11-07)
PROC: 4A12X4Z Monitoring of Cardiac Electrical Activity, External Approach (ICD-10-PCS; 2024-11-08)
PROC: B246ZZZ Ultrasonography of Right and Left Heart (ICD-10-PCS; 2024-11-08)
PROC: BB24ZZZ Computerized Tomography (CT Scan) of Bilateral Lungs (ICD-10-PCS; 2024-11-10)
PROC: CB121ZZ Planar Nuclear Medicine Imaging of Lungs and Bronchi using Technetium 99m (Tc-99m) (ICD-10-PCS; 2024-11-10)
DX: M17.0 Bilateral primary osteoarthritis of knee (principal); D62 Acute posthemorrhagic anemia; J95.89 Other postprocedural complications and disorders of respiratory system, not elsewhere classified; F05 Delirium due to known physiological condition; Z96.651 Presence of right artificial knee joint; R09.02 Hypoxemia

== ENCOUNTER 2024-11-16 11:47 | Inpatient (IN) | payer OTHER ==
[~2024-11-16] VITALS: Ht 177.8 cm; Wt 70.3 kg
[~2024-11-16 11:47] MED LIST changes: +CARDURA8 MG PO; +CYMBALTA60 MG PO; +DARIFENACIN ER15 MG PO; +ROSUVASTATIN CAL5 MG PO; +XARELTO10 MG PO; +ZESTRIL5 MG PO
[2024-11-16] MEDS ORDERED: CRESTOR40 MG PO (12:28)
[2024-11-16] MEDS ORDERED: ZESTRIL20 MG PO (12:29)
[2024-11-16] MEDS ORDERED: 0.9 % SODIUM CHLORIDE 1,000 ML IV STA (12:53)
[2024-11-16 14:03] LABS: BASO % 0.1 % (0.1-1.2); EOS # 0.01 (0.04-0.54); EOS % 0.1 % (0.7-7.0); LYMPH # 0.49 (1.18-3.74); LYMPH % 3.7 % (19.3-53.1); MEAN PLATELET VOLUME 9.10 fl (9.4-12.4); MONO # 1.10 (0.24-0.82); MONO % 8.3 % (4.7-12.5); NEUT # 11.50 (1.56-6.13); NEUT % 87.1 % (34.0-71.1); RED CELL DISTRIBUTION WIDTH 15.9 % (11.6-14.4)
[2024-11-16 14:36] LABS: ALT/SGPT 51.0 U/L (12-78); AST/SGOT 35.0 U/L (15-37); BILIRUBIN TOTAL 0.61 mg/dL (0.3-1.2); BUN CREA RATIO 10.0 (7.0-25.0); GFR 8.3; GLOBULINA 3.5 G/DL (2.4-3.5); GLUCOSE FASTING 121.0 mg/dL (65-100); OSMOLALITY SERUM 277.0 MOSM/KG (275-295)
[2024-11-16 14:38] LABS: CREATININE SERUM 6.44 mg/dL (0.70-1.30)
[2024-11-16] MEDS ORDERED: 0.9 % SODIUM CHLORIDE 1,000 ML IV SCH (19:30)
[2024-11-16] MEDS ORDERED: ATORVASTATIN CALCIUM 40 MG TABLET PO SCH (19:43)
[2024-11-16] MEDS ORDERED: MORPHINE SULFATE 2 MG/ML CARTRIDGE IV PRN (19:45)
[2024-11-16] MEDS ORDERED: hydrALAZINE HCL 20 MG VIAL IV PRN (19:45)
[2024-11-16] MEDS ORDERED: PIPERACILLIN/TAZOBACTAM SODIUM 2.25 GM VIAL IV SCH (21:00)
[2024-11-16 22:21] LABS: ABG PH 7.424 (7.35-7.45); ABG PO2 90.2 mmHg (80-100); BICARBONATE 18.2 mmol/l (23-25)
[2024-11-16 22:22] LABS: o2 21 %
[2024-11-17 01:56] LABS: INR 1.08
[2024-11-17 06:19] VITALS: BP 166/76
[2024-11-17 07:01] LABS: ALT/SGPT 46.0 U/L (12-78); AST/SGOT 29.0 U/L (15-37); BILIRUBIN TOTAL 0.63 mg/dL (0.3-1.2); BUN CREA RATIO 10.0 (7.0-25.0); GFR 7.06; GLOBULINA 2.9 G/DL (2.4-3.5); GLUCOSE FASTING 96.0 mg/dL (65-100); OSMOLALITY SERUM 284.0 MOSM/KG (275-295)
[2024-11-17 07:30] LABS: CREATININE SERUM 7.41 mg/dL (0.70-1.30)
[2024-11-17 09:29] VITALS: BP 134/78
[2024-11-17] MEDS ORDERED: CHLORHEXIDINE GLUCONATE 120 ML BOTTLE TOP ONE (14:15)
[2024-11-17 15:52] LABS: ABG PO2 109.1 mmHg (80-100); BICARBONATE 20.1 mmol/l (23-25); o2 40 %
[2024-11-17 15:53] LABS: ABG PH 7.189 (7.35-7.45)
[2024-11-17 20:53] LABS: ABG PH 7.309 (7.35-7.45); ABG PO2 184.8 mmHg (80-100); BICARBONATE 19.1 mmol/l (23-25)
[2024-11-17 20:54] LABS: o2 50 %
[2024-11-17 21:12] LABS: ABG PH 7.372 (7.35-7.45); ABG PO2 220.2 mmHg (80-100); BICARBONATE 19.7 mmol/l (23-25)
[2024-11-17 21:13] LABS: o2 50 %
[2024-11-18 06:54] LABS: ABG PH 7.434 (7.35-7.45); ABG PO2 141.7 mmHg (80-100); BICARBONATE 22.0 mmol/l (23-25); o2 50 %
[2024-11-18 07:40] LABS: BUN CREA RATIO 16.0 (7.0-25.0); CREATININE SERUM 2.68 mg/dL (0.70-1.30); GFR 22.82; GLUCOSE FASTING 86.0 mg/dL (65-100); OSMOLALITY SERUM 291.0 MOSM/KG (275-295)
[2024-11-18 07:58] LABS: BASO % 0.2 % (0.1-1.2); EOS # 0.01 (0.04-0.54); EOS % 0.1 % (0.7-7.0); LYMPH # 0.57 (1.18-3.74); LYMPH % 4.5 % (19.3-53.1); MEAN PLATELET VOLUME 9.70 fl (9.4-12.4); MONO # 1.38 (0.24-0.82); MONO % 11.0 % (4.7-12.5); NEUT # 10.52 (1.56-6.13); NEUT % 83.4 % (34.0-71.1); RED CELL DISTRIBUTION WIDTH 15.9 % (11.6-14.4)
[2024-11-18 09:36] LABS: ABG PH 7.430 (7.35-7.45); ABG PO2 109.4 mmHg (80-100)
[2024-11-18 09:37] LABS: BICARBONATE 22.0 mmol/l (23-25); o2 50 %
[2024-11-18 16:22] VITALS: BP 130/79; O2SAT 97
[2024-11-19 02:30] VITALS: BP 129/70
[2024-11-19 05:07] LABS: BASO % 0.1 % (0.1-1.2); EOS # 0.01 (0.04-0.54); EOS % 0.1 % (0.7-7.0); LYMPH # 0.73 (1.18-3.74); LYMPH % 4.8 % (19.3-53.1); MEAN PLATELET VOLUME 9.10 fl (9.4-12.4); MONO # 1.89 (0.24-0.82); NEUT # 12.38 (1.56-6.13); NEUT % 81.6 % (34.0-71.1); RED CELL DISTRIBUTION WIDTH 16.2 % (11.6-14.4)
[2024-11-19 05:33] LABS: ALT/SGPT 46.0 U/L (12-78); AST/SGOT 40.0 U/L (15-37); BILIRUBIN TOTAL 0.6 mg/dL (0.3-1.2); BUN CREA RATIO 20.0 (7.0-25.0); CREATININE SERUM 0.91 mg/dL (0.70-1.30); GFR 79.37; GLOBULINA 3.2 G/DL (2.4-3.5); GLUCOSE FASTING 125.0 mg/dL (65-100); OSMOLALITY SERUM 288.0 MOSM/KG (275-295)
[2024-11-19 06:22] LABS: MONO % 12.5 % (4.7-12.5)
[2024-11-19 08:39] VITALS: BP 150/79; O2SAT 99
[2024-11-19] MEDS ORDERED: TRAMADOL HCL 50 MG TABLET PO PRN (12:45)
[2024-11-19 13:35] LABS: URINE APPEARANCE Clear; URINE BACTERIA 27.5 uL (0.0-1933); URINE BILIRRUBIN Negative (NEGATIVE); URINE BLOOD Large; URINE COLOR Yellow; URINE EPITHELIAL CELLS 3.5 uL (0.0-38.8); URINE GLUCOSE Negative (NEGATIVE); URINE KETONE Negative (NEGATIVE); URINE LEUKOCYTE Trace; URINE NITRATE Negative; URINE PROTEIN Trace (NEGATIVE); URINE RBC 1050.5 uL (0.0-20.8); URINE WBC 73.8 uL (0.0-23.2)
[2024-11-19 13:42] LABS: URINE CAST 0.73 uL (0.0-1.40); URINE UROBILINOGEN 4.0 E.U./dl
[2024-11-19] MEDS ORDERED: TAMSULOSIN HCL 0.4 MG CAP PO SCH (13:44)
[2024-11-19] MEDS ORDERED: 0.9 % SODIUM CHLORIDE 1,000 ML IV SCH (14:00)
[2024-11-19 16:33] VITALS: BP 124/74
[2024-11-19] MEDS ORDERED: LACTOBACILLUS ACIDOPHILUS 1 CAP CAP PO SCH (17:00)
[2024-11-19] MEDS ORDERED: PATIENTS OWN MEDICATION (MEDICAMENTO EN PISO) PO SCH (21:00)
[2024-11-20 00:35] VITALS: BP 132/69; O2SAT 96
[2024-11-20 06:43] LABS: BASO % 0.2 % (0.1-1.2); EOS # 0.02 (0.04-0.54); EOS % 0.2 % (0.7-7.0); LYMPH # 0.77 (1.18-3.74); LYMPH % 6.2 % (19.3-53.1); MEAN PLATELET VOLUME 9.70 fl (9.4-12.4); MONO # 1.80 (0.24-0.82); NEUT # 9.75 (1.56-6.13); NEUT % 78.2 % (34.0-71.1); RED CELL DISTRIBUTION WIDTH 16.0 % (11.6-14.4)
[2024-11-20 07:16] LABS: MONO % 14.4 % (4.7-12.5)
[2024-11-20 07:51] VITALS: BP 138/74
[2024-11-20] MEDS ORDERED: RIVAROXABAN 10 MG TAB PO SCH (09:00)
[2024-11-20] MEDS ORDERED: LISINOPRIL 2.5 MG TABLET PO SCH (09:00)
[2024-11-20] MEDS ORDERED: Cyanocobalamin/Mecobalamin 1 TAB.SL SL SCH (09:00)
[2024-11-20] MEDS ORDERED: FOLIC ACID 1 MG TABLET PO SCH (09:00)
[2024-11-20] MEDS ORDERED: ENOXAPARIN SODIUM 40 MG/0.4 ML SYRINGE SUBCUTANEO SCH (09:00)
[2024-11-20] MEDS ORDERED: SOD FERRIC GLUC COMPLX/SUCROSE 62.5 MG in 0.9 % SODIUM CHLORIDE 50 ML IV SCH (12:00)
[2024-11-20] MEDS ORDERED: IRON FUM,PS/FOLIC/BCOMP,C NO.9 1 CAP CAPSULE PO NR (13:00)
[2024-11-20 16:51] VITALS: BP 144/76
[2024-11-21 01:39] VITALS: BP 131/71; O2SAT 98
[2024-11-21 05:52] LABS: BASO % 0.2 % (0.1-1.2); EOS # 0.02 (0.04-0.54); EOS % 0.2 % (0.7-7.0); LYMPH # 0.92 (1.18-3.74); LYMPH % 7.9 % (19.3-53.1); MEAN PLATELET VOLUME 9.50 fl (9.4-12.4); MONO # 1.74 (0.24-0.82); NEUT # 8.87 (1.56-6.13); NEUT % 76.2 % (34.0-71.1); RED CELL DISTRIBUTION WIDTH 15.8 % (11.6-14.4)
[2024-11-21 06:39] LABS: MONO % 14.9 % (4.7-12.5)
[2024-11-21 08:26] VITALS: BP 135/82
[2024-11-21] MEDS ORDERED: IRON FUM,PS/FOLIC/BCOMP,C NO.9 1 CAP CAPSULE PO SCH (09:00)
[2024-11-21] MEDS ORDERED: AMINO ACIDS/PROTEIN HYDROLYS 30 ML BLIST.PACK PO SCH (17:00)
[2024-11-21 18:40] VITALS: BP 120/70
== END 2024-11-21 21:52 | disposition home or self-care (01) | DRG 815 ==
LOC: ER 11:47 → MEDI 19:08
PROVIDERS: Anesthesiology; General Practice; Internal Medicine; Internal Medicine Nephrology; ADMIT Internal Medicine; ATTEND Internal Medicine
PROC: BW21ZZZ Computerized Tomography (CT Scan) of Abdomen and Pelvis (ICD-10-PCS; principal; 2024-11-16)
PROC: 5A09457 Assistance with Respiratory Ventilation, 24-96 Consecutive Hours, Continuous Positive Airway Pressure (ICD-10-PCS; 2024-11-17)
PROC: 4A12X4Z Monitoring of Cardiac Electrical Activity, External Approach (ICD-10-PCS; 2024-11-17)
PROC: 0T7D8ZZ Dilation of Urethra, Via Natural or Artificial Opening Endoscopic (ICD-10-PCS; 2024-11-17)
PROC: B54BZZZ Ultrasonography of Right Lower Extremity Veins (ICD-10-PCS; 2024-11-18)
PROC: 5A0935A Assistance with Respiratory Ventilation, Less than 24 Consecutive Hours, High Flow/Velocity Cannula (ICD-10-PCS; 2024-11-18)
DX: D72.828 Other elevated white blood cell count (principal); N17.8 Other acute kidney failure; I12.9 Hypertensive chronic kidney disease with stage 1 through stage 4 chronic kidney disease, or unspecified chronic kidney disease; R33.8 Other retention of urine; N35.819 Other urethral stricture, male, unspecified site; R09.02 Hypoxemia

== ENCOUNTER 2024-12-25 12:49 | Inpatient (IN) | payer OTHER ==
[~2024-12-25] VITALS: Ht 180.3 cm; Wt 2.3 kg
[~2024-12-25 12:49] MED LIST changes: +CRESTOR40 MG PO; +ZESTRIL20 MG PO
--- NOTE | 2024-12-25 13:37 | NUR ---
PACIENTE ALERTA Y ORIENTADO X3 QUIEN REFIERE QUE LLEVA VARIOS CR CON DEBILIDAD, MAREOS, QUE HOY TUVO DOS EPISODOIOS DE VOMITOS. SE MONITOREAN S/V. Y SE UBICA PACIENTE.
--- NOTE | 2024-12-25 13:44 | NUR ---
PACIENTE MASCULINO, S/V EN PARAMETROS NORMALES, EVALUADA Y SE UBICA.
--- NOTE | 2024-12-25 16:02 | NUR ---
RN.ROGERS ORIENTA PTE SOBRE TRATMIENTO MEDICO Y LO EJECUTA EN REYNA TOTALIDAD
[2024-12-25 16:13] LABS: BASO % 0.1 % (0.1-1.2); EOS # 0.00 (0.04-0.54); EOS % 0.0 % (0.7-7.0); LYMPH # 0.92 (1.18-3.74); LYMPH % 8.6 % (19.3-53.1); MEAN PLATELET VOLUME 9.10 fl (9.4-12.4); MONO # 1.18 (0.24-0.82); MONO % 11.0 % (4.7-12.5); NEUT # 8.55 (1.56-6.13); NEUT % 79.8 % (34.0-71.1); RED CELL DISTRIBUTION WIDTH 16.2 % (11.6-14.4)
[2024-12-25 16:21] LABS: ERYTHROCYTE SEDIMENTATION RATE 97 mm/hr (0-20)
[2024-12-25 16:42] LABS: URINE APPEARANCE Cloudy; URINE BILIRRUBIN Negative (NEGATIVE); URINE BLOOD Moderate; URINE COLOR Yellow; URINE GLUCOSE Negative (NEGATIVE); URINE KETONE Negative (NEGATIVE); URINE LEUKOCYTE Large; URINE NITRATE Negative; URINE PROTEIN 30 (NEGATIVE); URINE UROBILINOGEN 0.2 E.U./dl
[2024-12-25 16:50] LABS: URINE EPITHELIAL CELLS 4.4 uL (0.0-38.8); URINE RBC 6.7 uL (0.0-20.8); URINE WBC 2532.5 uL (0.0-23.2)
[2024-12-25 16:53] LABS: INR 1.1
[2024-12-25 17:21] LABS: TYPE CELLS SQUAMOUS; URINE BACTERIA > 9821.5 uL (0.0-1933); URINE CAST 1.17 uL (0.0-1.40); URINE MUCUS SCANT
[2024-12-25 17:47] LABS: ALT/SGPT 46.0 U/L (12-78); AST/SGOT 32.0 U/L (15-37); BILIRUBIN TOTAL 0.33 mg/dL (0.3-1.2); BUN CREA RATIO 17.0 (7.0-25.0); CREATININE SERUM 1.03 mg/dL (0.70-1.30); GFR 68.8; GLOBULINA 2.9 G/DL (2.4-3.5); GLUCOSE FASTING 119.0 mg/dL (65-100); OSMOLALITY SERUM 286.0 MOSM/KG (275-295)
[2024-12-25] MEDS ORDERED: 0.9 % SODIUM CHLORIDE 1,000 ML IV STA (19:29)
[2024-12-25] MEDS ORDERED: ATORVASTATIN CALCIUM 40 MG TABLET PO SCH (21:03)
[2024-12-25] MEDS ORDERED: LISINOPRIL 20 MG TABLET PO SCH (21:03)
[2024-12-25] MEDS ORDERED: CEFTRIAXONE SODIUM 2,000 MG in 0.9 % SODIUM CHLORIDE 100 ML IV SCH (21:06)
[2024-12-25] MEDS ORDERED: TAMSULOSIN HCL 0.4 MG CAP PO SCH (21:08)
[2024-12-25] MEDS ORDERED: PHENAZOPYRIDINE HCL 100 MG TABLET PO SCH (21:08)
[2024-12-25] MEDS ORDERED: ONDANSETRON HCL 4 MG in 0.9 % SODIUM CHLORIDE 50 ML IV PRN (21:15)
[2024-12-25] MEDS ORDERED: ACETAMINOPHEN 325 MG TABLET PO PRN (21:15)
[2024-12-25] MEDS ORDERED: 0.9 % SODIUM CHLORIDE 1,000 ML IV SCH (21:15)
--- NOTE | 2024-12-25 22:34 | NUR ---
SE ORIENTA PTE SOBRE INCERSION DE MCCAIN SHARLA ORDEN DE DR HERNANDEZ KERRY NO SE LOGRA,SE NOTIFICA QUIEN INDICA VENDRA MANANA PRA INSERCION.SE CANLIZA BAJO MEDIDAS ASEPTICAS Y SE COLOCAN FLUIDOS DE MANTENIMIENTO.
[2024-12-26 02:55] VITALS: BP 135/75
[2024-12-26 04:00] VITALS: BP 131/70; O2SAT 95
[2024-12-26 05:42] LABS: BASO % 0.2 % (0.1-1.2); EOS # 0.00 (0.04-0.54); EOS % 0.0 % (0.7-7.0); LYMPH # 0.55 (1.18-3.74); LYMPH % 5.7 % (19.3-53.1); MEAN PLATELET VOLUME 9.70 fl (9.4-12.4); MONO # 1.28 (0.24-0.82); NEUT # 7.84 (1.56-6.13); NEUT % 80.5 % (34.0-71.1); RED CELL DISTRIBUTION WIDTH 16.1 % (11.6-14.4)
[2024-12-26 05:54] LABS: MONO % 13.2 % (4.7-12.5)
[2024-12-26 08:59] VITALS: BP 148/89
[2024-12-26] MEDS ORDERED: ENOXAPARIN SODIUM 40 MG/0.4 ML SYRINGE SUBCUTANEO SCH (09:00)
[2024-12-26] MEDS ORDERED: MEROPENEM 500 MG/VIAL VIAL IV STA (10:11)
[2024-12-26] MEDS ORDERED: MEROPENEM 500 MG/VIAL VIAL IV SCH (14:00)
[2024-12-26] MEDS ORDERED: LACTOBACILLUS ACIDOPHILUS 1 CAP CAP PO SCH (17:00)
[2024-12-26 20:38] VITALS: BP 121/70; O2SAT 95
[2024-12-27 02:06] VITALS: BP 143/81; O2SAT 94
[2024-12-27 09:26] VITALS: BP 142/83
[2024-12-27 18:21] VITALS: BP 134/71
[2024-12-27] MEDS ORDERED: GABAPENTIN 100 MG CAPSULE PO SCH (21:00)
[2024-12-28 00:55] VITALS: BP 142/73
[2024-12-28] MEDS ORDERED: LISINOPRIL 10 MG TABLET PO SCH (09:00)
[2024-12-28 09:38] VITALS: BP 138/72
[2024-12-28 18:43] VITALS: BP 106/57
[2024-12-29 01:09] VITALS: BP 133/72; O2SAT 95
[2024-12-29 06:55] LABS: URINE APPEARANCE Clear; URINE BILIRRUBIN Negative (NEGATIVE); URINE BLOOD Moderate; URINE COLOR Dark Yellow; URINE GLUCOSE Negative (NEGATIVE); URINE KETONE Negative (NEGATIVE); URINE LEUKOCYTE Trace; URINE NITRATE Positive; URINE UROBILINOGEN 1.0 E.U./dl
[2024-12-29 06:56] LABS: BASO % 0.2 % (0.1-1.2); EOS # 0.17 (0.04-0.54); EOS % 1.3 % (0.7-7.0); LYMPH # 1.37 (1.18-3.74); LYMPH % 10.1 % (19.3-53.1); MEAN PLATELET VOLUME 9.80 fl (9.4-12.4); MONO # 1.20 (0.24-0.82); MONO % 8.9 % (4.7-12.5); NEUT # 10.67 (1.56-6.13); NEUT % 78.8 % (34.0-71.1); RED CELL DISTRIBUTION WIDTH 15.9 % (11.6-14.4)
[2024-12-29 07:05] LABS: URINE BACTERIA 45.5 uL (0.0-1933); URINE EPITHELIAL CELLS 5.0 uL (0.0-38.8); URINE RBC 540.6 uL (0.0-20.8); URINE WBC 84.4 uL (0.0-23.2)
[2024-12-29 07:10] LABS: URINE CAST 0.14 uL (0.0-1.40); URINE PROTEIN 100 (NEGATIVE)
[2024-12-29 07:24] LABS: BUN CREA RATIO 19.0 (7.0-25.0); CREATININE SERUM 0.64 mg/dL (0.70-1.30); GFR 118.86; GLUCOSE FASTING 99.0 mg/dL (65-100); OSMOLALITY SERUM 288.0 MOSM/KG (275-295)
[2024-12-29 08:15] VITALS: BP 153/72; O2SAT 94
[2024-12-29] MEDS ORDERED: MAGNESIUM SULFATE IN WATER 50 ML IV NR ×2 (10:00→15:15)
[2024-12-29] MEDS ORDERED: POTASSIUM CHLORIDE IN WATER 100 ML IV SCH (13:00)
[2024-12-29 20:17] VITALS: BP 117/66
[2024-12-30 02:28] VITALS: BP 147/71; O2SAT 95
[2024-12-30 05:12] LABS: BASO % 0.3 % (0.1-1.2); EOS # 0.24 (0.04-0.54); EOS % 2.1 % (0.7-7.0); LYMPH # 1.26 (1.18-3.74); LYMPH % 11.1 % (19.3-53.1); MEAN PLATELET VOLUME 9.70 fl (9.4-12.4); MONO # 1.08 (0.24-0.82); MONO % 9.5 % (4.7-12.5); NEUT # 8.65 (1.56-6.13); NEUT % 76.1 % (34.0-71.1); RED CELL DISTRIBUTION WIDTH 15.9 % (11.6-14.4)
[2024-12-30 05:39] LABS: BUN CREA RATIO 21.0 (7.0-25.0); CREATININE SERUM 0.56 mg/dL (0.70-1.30); GFR 138.66; GLUCOSE FASTING 92.0 mg/dL (65-100); OSMOLALITY SERUM 288.0 MOSM/KG (275-295)
[2024-12-30 19:11] VITALS: BP 115/62; O2SAT 96
[2024-12-31 02:29] VITALS: BP 146/78; O2SAT 95
[2024-12-31 09:24] VITALS: BP 136/62; O2SAT 98
[2024-12-31 19:08] VITALS: BP 124/54
[2025-01-01 00:18] VITALS: BP 139/66
[2025-01-01 06:18] LABS: BASO % 0.3 % (0.1-1.2); EOS # 0.30 (0.04-0.54); EOS % 3.0 % (0.7-7.0); LYMPH # 1.43 (1.18-3.74); LYMPH % 14.2 % (19.3-53.1); MEAN PLATELET VOLUME 10.00 fl (9.4-12.4); MONO # 1.03 (0.24-0.82); MONO % 10.2 % (4.7-12.5); NEUT # 7.19 (1.56-6.13); NEUT % 71.4 % (34.0-71.1); RED CELL DISTRIBUTION WIDTH 15.9 % (11.6-14.4)
[2025-01-01 08:57] VITALS: BP 141/80; O2SAT 98
[2025-01-01 20:16] VITALS: BP 132/80
[2025-01-02 01:12] VITALS: BP 146/70; O2SAT 93
[2025-01-02 08:16] VITALS: BP 128/71
== END 2025-01-02 13:10 | disposition home or self-care (01) | DRG 872 ==
LOC: ER 12:50 → MEDI 22:12
PROVIDERS: General Practice; Internal Medicine; Internal Medicine Infectious Disease; Physician Assistant Medical; ADMIT Student in an Organized Health Care Education/Training Program; ATTEND Student in an Organized Health Care Education/Training Program
PROC: 0T9B70Z Drainage of Bladder with Drainage Device, Via Natural or Artificial Opening (ICD-10-PCS; principal; 2024-12-26)
PROC: B246ZZZ Ultrasonography of Right and Left Heart (ICD-10-PCS; 2024-12-27)
DX: A41.53 Sepsis due to Serratia (principal); N39.0 Urinary tract infection, site not specified; M62.81 Muscle weakness (generalized); D64.9 Anemia, unspecified; C61 Malignant neoplasm of prostate; B96.89 Other specified bacterial agents as the cause of diseases classified elsewhere; I10 Essential (primary) hypertension

== ENCOUNTER 2025-01-15 11:00 | Emergency (ER) | payer OTHER ==
[~2025-01-15] VITALS: Ht 177.8 cm; Wt 66.2 kg
[2025-01-15] MEDS ORDERED: REMINYL4 MG PO (13:00)
[2025-01-15] MEDS ORDERED: TAMS0.4C PO (13:00)
[2025-01-15] MEDS ORDERED: DULOXETINE HCL60 MG PO (13:01)
[2025-01-15] MEDS ORDERED: FAMOTIDINE/PF 20 MG in 0.9 % SODIUM CHLORIDE 8 ML IV PUSH ONE (14:15)
[2025-01-15] MEDS ORDERED: 0.9 % SODIUM CHLORIDE 1,000 ML IV SCH (14:15)
[2025-01-15] MEDS ORDERED: TAMSULOSIN HCL 0.4 MG CAP PO ONE (14:15)
[2025-01-15] MEDS ORDERED: ACETAMINOPHEN 500 MG GEL..CAP PO ONE (14:15)
== END 2025-01-15 17:47 | disposition home or self-care (01) ==
LOC: ER 11:01
DX: T83.011A Breakdown (mechanical) of indwelling urethral catheter, initial encounter (principal); X58.XXXA Exposure to other specified factors, initial encounter; Y92.89 Other specified places as the place of occurrence of the external cause; N40.0 Benign prostatic hyperplasia without lower urinary tract symptoms

== ENCOUNTER 2025-02-10 12:08 | Outpatient (CLI) | payer OTHER ==
[~2025-02-10 12:08] MED LIST changes: +DULOXETINE HCL60 MG PO; +REMINYL4 MG PO; +TAMS0.4C PO
== END 2025-02-10 12:09 | disposition home or self-care (01) ==
LOC: RAD 12:08
PROVIDERS: ATTEND Physical Medicine & Rehabilitation
DX: M25.551 Pain in right hip (principal); M25.552 Pain in left hip

== ENCOUNTER 2025-02-18 13:44 | Outpatient (CLI) | payer OTHER | END 2025-02-18 13:47 | disposition home or self-care (01) | LOC: RAD 13:44 | PROVIDERS: ATTEND Physical Medicine & Rehabilitation | DX: S69.92XA Unspecified injury of left wrist, hand and finger(s), initial encounter (principal); X58.XXXA Exposure to other specified factors, initial encounter; Y93.9 Activity, unspecified; Y92.9 Unspecified place or not applicable; Y99.9 Unspecified external cause status ==

== ENCOUNTER 2025-02-27 11:40 | Outpatient (CLI) | payer OTHER | END 2025-02-27 11:44 | disposition home or self-care (01) | LOC: RAD 11:40 | DX: M47.817 Spondylosis without myelopathy or radiculopathy, lumbosacral region (principal) ==

== ENCOUNTER 2025-03-06 04:48 | Emergency (ER) | payer OTHER ==
[~2025-03-06] VITALS: Ht 180.3 cm; Wt 68.0 kg
== END 2025-03-06 09:44 | disposition home or self-care (01) ==
LOC: ER 04:49
DX: N40.1 Benign prostatic hyperplasia with lower urinary tract symptoms (principal); R33.8 Other retention of urine

== ENCOUNTER 2025-03-11 12:11 | Outpatient (CLI) | payer OTHER | END 2025-03-11 12:16 | disposition home or self-care (01) | LOC: RAD 12:11 | PROVIDERS: ATTEND Orthopaedic Surgery | DX: S62.655A Nondisplaced fracture of middle phalanx of left ring finger, initial encounter for closed fracture (principal) ==

== ENCOUNTER 2025-03-20 08:51 | Outpatient (CLI) | payer OTHER | END 2025-03-20 08:56 | disposition home or self-care (01) | LOC: TOM 08:51 | PROVIDERS: ATTEND Psychiatry & Neurology Neurology | DX: S05.50XA Penetrating wound with foreign body of unspecified eyeball, initial encounter (principal) ==